=== PATIENT | female | born 1990 | race African-American/Black ===

== ENCOUNTER 2017-02-08 09:17 | Emergency (ER) | payer OTHER ==
--- NOTE | 2017-02-08 10:35 | ED Physician Documentation ---
PD HPI ABD PAIN - Stated complaint Stated Complaint: CHEST/ABD PX - Chief complaint Chief Complaint: Cardiac - History obtained from History obtained from: Patient - History of Present Illness Timing - onset: Today Timing - details: Abrupt onset, Still present (still with nausea, but has not had vomiting nor diarrhea for acouple hours. Has considerable general abd pain though.), Constant Quality: Cramping, Aching, Pain Location: All over / everywhere Radiation: Chest Improved by: No: Vomiting Worsened by: Moving, Position (feels best with knees drawn up.), Palpation Associated symptoms: Nausea, Vomiting, Diarrhea. No: Fever, Hematemesis, Melena Similar symptoms before: Has not had sx before Recently seen: Not recently seen Review of Systems Constitutional: reports: Myalgias. denies: Fever, Chills Nose: denies: Rhinorrhea / runny nose, Congestion Throat: denies: Sore throat Cardiac: reports: Chest pain / pressure. denies: Palpitations Respiratory: denies: Dyspnea, Cough GI: reports: Abdominal Pain, Nausea, Vomiting, Diarrhea. denies: Hematemesis, Bloody / black stool : denies: Dysuria, Frequency Skin: denies: Rash, Lesions Neurologic: reports: Generalized weakness. denies: Near syncope PD PAST MEDICAL HISTORY - Past Medical History Past Medical History: No Cardiovascular: None Respiratory: None Endocrine/Autoimmune: None GI: None - Past Surgical History Past Surgical History: No - Present Medications Home Medications: Ambulatory Orders Medication Instructions Recorded Confirmed Albuterol Sulfate [Albuterol 1 puffs IH Q6HR PRN 01/15/14 02/08/17 Sulfate Hfa] Bcp 01/15/14 01/15/14 Dicyclomine [Bentyl] 10 mg PO QID PRN #10 capsule 02/08/17 Diphenoxylate HCl/Atropine 1 each PO Q6H PRN #12 tablet 02/08/17 [Diphenoxylate-Atrop 2.5-0.025] Linaclotide [Linzess] 1 cap PO DAILY 02/08/17 02/08/17 Ondansetron Odt [Zofran] 4 mg TL Q6H PRN #15 tablet 02/08/17 - Allergies Allergies/Adverse Reactions: Allergies Allergy/AdvReac Type Severity Reaction Status Date / Time No Known Drug Allergies Allergy Verified 01/15/14 00:06 - Social History Does the pt smoke?: No Smoking Status: Never smoker Does the pt drink ETOH?: Yes Does the pt have substance abuse?: No - Immunizations Immunizations are current?: Yes - POLST Patient has POLST: No PD ED PE NORMAL - Vitals Vital signs reviewed: Yes - General General: Alert and oriented X 3, Well developed/nourished, Other (appears in pain with knees drawn up. ) - HEENT HEENT: Pharynx benign. No: Moist mucous membranes - Neck Neck: Supple, no meningeal sign, No adenopathy - Cardiac Cardiac: RRR, No murmur - Respiratory Respiratory: Clear bilaterally - Abdomen Abdomen: Normal bowel sounds, Soft, Non distended, No organomegaly, Other ( tender diffusely with guarding and some percussion tenderness, not focal. ) - Back Back: No CVA TTP - Derm Derm: Normal color, Warm and dry Results - Vitals Vitals: Vital Signs - 24 hr 02/08/17 02/08/17 02/08/17 09:22 12:05 13:55 Temperature 36.6 C Heart Rate 109 H 104 H 96 Respiratory 18 14 17 Rate Blood Pressure 180/93 H 116/62 127/77 O2 Saturation 100 100 99 Oxygen O2 Source Room air - Labs Labs: Laboratory Tests 02/08/17 02/08/17 10:25 10:25 WBC 11.5 H RBC 4.71 Hgb 13.0 Hct 40.2 MCV 85.3 MCH 27.6 MCHC 32.3 RDW 13.2 Plt Count 236 MPV 8.4 Neut # 10.7 H Lymph # 0.3 L [place] # 0.4 Eos # 0.0 Baso # 0.0 Absolute Nucleated RBC 0.00 Nucleated RBC % 0.0 Sodium 137 Potassium 3.5 Chloride 104 Carbon Dioxide 24 Anion Gap 9.0 BUN 16 Creatinine 0.6 Estimated GFR (MDRD) 146 Glucose 90 Calcium 9.4 Total Bilirubin 1.4 H AST 40 ALT 12 Alkaline Phosphatase 53 Total Protein 8.7 H Albumin 5.1 Globulin 3.6 Albumin/Globulin Ratio 1.4 Lipase 18 L Serum HCG, Qual NEGATIVE - Rads (name of study) abd CT Radiology: Prelim report reviewed (no acute processs) PD MEDICAL DECISION MAKING - ED course Complexity details: re-evaluated patient (she is feeling much better after fluids and meds. She had such marked pain, I was concerned about such as appy, perforation, esophageal rupture with vomiting, etc. CT done which appeared normal. ), considered differential, d/w patient Departure - Departure Disposition: 01 Home, Self Care Clinical Impression: Nausea vomiting and diarrhea Abdominal pain Qualifiers: Abdominal location: generalized Qualified Code(s): R10.84 - Generalized abdominal pain Condition: Stable Record reviewed to determine appropriate education?: Yes Instructions: ED Abdominal Pain Unkn Cause, ED Nausea Vomiting Follow-Up: MANUEL RIVERA MD [Primary Care Provider] - Prescriptions: Dicyclomine [Bentyl] 10 mg PO QID PRN #10 capsule PRN Reason: Spasms Diphenoxylate HCl/Atropine [Diphenoxylate-Atrop 2.5-0.025] 1 each PO Q6H PRN # 12 tablet PRN Reason: Diarrhea Ondansetron Odt [Zofran] 4 mg TL Q6H PRN #15 tablet PRN Reason: Nausea / Vomiting Comments: Small frequent fluids and bland food today. Progress diet as able after that. Good hydration through the rest of today. Use Tylenol if needed for mild pains. Add dicyclomine if needed for abdominal cramping pain. Ondansetron if needed for nausea. Lomotil if needed for diarrhea. I would presume this will improve in the next day. Recheck if not better over the next 1-2 days. Rest off work for 1-2 days. Forms: Activity restrictions Discharge Date/Time: 02/08/17 14:06
[2017-02-08] MEDS ORDERED: ONDANSETRON 4 MG/2 ML VIAL IVP STA (10:43)
[2017-02-08] MEDS ORDERED: HYDROmorphone 0.5 MG/0.5 ML SYRINGE IVP STA ×2 (10:43→11:34)
[2017-02-08] MEDS ORDERED: SODIUM CHLORIDE 0.9% 1,000 ML IV ONE (10:43)
[2017-02-08] MEDS ORDERED: HYDROmorphone 1 MG/ML SYRINGE IVP STA ×2 (10:46→11:37)
[2017-02-08 10:51] LABS: BASOPHILS % (AUTO) 0.3 %; EOSINOPHILS % (AUTO) 0.1 %; HCT - HEMATOCRIT 40.2 % (37.0-47.0); LYMPHOCYTES # (AUTO) 0.3 10^3/uL (1.5-3.5); MEAN CORPUSCULAR HEMOGLOBIN 27.6 pg (27.0-31.0); MEAN CORPUSCULAR HGB CONC 32.3 g/dL (32.0-36.0); MEAN CORPUSCULAR VOLUME 85.3 fL (81.0-99.0); MEAN PLATELET VOLUME 8.4 fL (7.9-10.8); MONOCYTES # (AUTO) 0.4 10^3/uL (0.0-1.0); MONOCYTES % (AUTO) 3.3 %; NEUTROPHILS # (AUTO) 10.7 10^3/uL (1.5-6.6); NEUTROPHILS % (AUTO) 93.3 %; RED BLOOD COUNT 4.71 10^6/uL (4.20-5.40); RED CELL DISTRIBUTION WIDTH 13.2 % (12.0-15.0); UNCORRECTED WHITE BLOOD COUNT 11.5 x10^3/uL; WHITE BLOOD COUNT 11.5 x10^3/uL (4.8-10.8)
[2017-02-08] MEDS ORDERED: ONDANSETRON 4 MG/2 ML VIAL ONE (10:56)
[2017-02-08] MEDS ORDERED: HYDROmorphone 1 MG/ML SYRINGE ONE ×2 (10:56→11:51)
[2017-02-08 10:59] LABS: ALBUMIN/GLOBULIN RATIO 1.4 (1.0-2.2); BILIRUBIN,TOTAL 1.4 mg/dL (0.2-1.0); BUN - BLOOD UREA NITROGEN 16 mg/dL (6-20); CALCIUM 9.4 mg/dL (8.5-10.3); CARBON DIOXIDE - CO2 24 mmol/L (21-32); CHLORIDE 104 mmol/L (101-111); CREATININE 0.6 mg/dL (0.4-1.0); GFR - MDRD 146 (>89); GLUCOSE 90 mg/dL (70-100); LIPASE 18 U/L (22-51); POTASSIUM 3.5 mmol/L (3.5-5.0); SODIUM 137 mmol/L (135-145); TOTAL PROTEIN 8.7 g/dL (6.7-8.2)
[2017-02-08] MEDS ORDERED: KETOROLAC 60 MG/2 ML VIAL IVP STA (11:34)
[2017-02-08] MEDS ORDERED: IOPAMIDOL-300 100 ML VIAL ONE (11:47)
[2017-02-08] MEDS ORDERED: KETOROLAC 30 MG/ML VIAL ONE (11:51)
[2017-02-08] MEDS ORDERED: IOPAMIDOL-300 100 ML VIAL IVP ONE (12:06)
--- NOTE | 2017-02-08 12:26 | CT Preliminary Report ---
Exam: CT ABDOMEN/PELVIS W/ IMPRESSION: 1. Mild thickening versus underdistention of the body of the stomach. Correlate for possible gastriti s. 2. Opacity about the left iliac bone measuring up to 8.3 mm suggestive of bone island. 3. Otherwise, unremarkable exam. [facility] SITE ID: [id number]
--- NOTE | 2017-02-08 12:28 | CT Report ---
EXAM: CT ABDOMEN AND PELVIS EXAM DATE: 02/08/2017 12:07 PM. CLINICAL HISTORY: Vomiting and diarrhea today; diffuse severe abd pa. COMPARISONS: None. TECHNIQUE: Routine helical CT imaging was performed through the abdomen and pelvis. IV contrast: 100M L OF ISOVUE 300. Enteric contrast: No. Reconstructions: Coronal and sagittal. In accordance with CT protocol optimization, one or more of the following dose reduction techniques w ere utilized for this exam: automated exposure control, adjustment of mA and/or KV based on patient s ize, or use of iterative reconstructive technique. FINDINGS: Lung Bases: Unremarkable. Liver: Normal. No masses. Gallbladder/Bile Ducts: Unremarkable. Spleen: Normal. Pancreas: Normal. Adrenal Glands: Normal. Kidneys: Normal. No masses or hydronephrosis. Peritoneal Cavity/Bowel: There is mild thickening versus underdistention of the body of the stomach. No free fluid, free air or adenopathy. No masses or acute inflammatory process. The appendix is well visualized and normal. Pelvic Organs: Normal. The bladder and visualized pelvic organs are within normal limits. Vasculature: No aneurysms or other significant abnormality. Bones: There is an opacity noted about the left iliac bone measuring up to 8.3 mm, suggestive of bone island. Remaining osseous structures are intact and are unremarkable. Other: None. IMPRESSION: 1. Mild thickening versus underdistention of the body of the stomach. Correlate for possible gastriti s. 2. Opacity about the left iliac bone measuring up to 8.3 mm suggestive of bone island. 3. Otherwise, unremarkable exam. [facility] Referring Provider Line: [phone] SITE ID: [id number]
[2017-02-08] MEDS ORDERED: LIDOCAINE VISCOUS 2% 15 ML UDC MM STA (12:52)
[2017-02-08] MEDS ORDERED: MAG HYDROX/AL HYDROX/SIMETH 30 ML UDC PO STA (12:52)
[2017-02-08] MEDS ORDERED: LIDOCAINE VISCOUS 2% 15 ML UDC MM ONE (13:07)
[2017-02-08] MEDS ORDERED: MAG HYDROX/AL HYDROX/SIMETH 30 ML UDC ONE (13:07)
[2017-02-08 13:56] VITALS: BP 127/77
== END 2017-02-08 14:06 | disposition home or self-care (01) ==
LOC: ED 09:17
DX: R10.84 Generalized abdominal pain (principal); R11.2 Nausea with vomiting, unspecified; R19.7 Diarrhea, unspecified
CPT/HCPCS: 36415; 74177; 80053; 83690; 84703; 85025; 93005; 96361; 96374; 96375; 96376; 99284; A9270; J1170; Q9967

== ENCOUNTER 2017-05-23 07:35 | Emergency (ER) | payer OTHER ==
[2017-05-23 07:49] VITALS: BP 146/115
[2017-05-23] MEDS ORDERED: ACETAMINOPHEN 325 MG TABLET PO STA (07:56)
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
== END 2017-05-23 08:18 | disposition home or self-care (01) ==
LOC: ED 07:35
DX: S16.1XXA Strain of muscle, fascia and tendon at neck level, initial encounter (principal); V49.9XXA Car occupant (driver) (passenger) injured in unspecified traffic accident, initial encounter
CPT/HCPCS: 99283; A9270